=== PATIENT | female | born 1995 | race Caucasian/White ===

== ENCOUNTER 2024-06-05 19:34 | Emergency (ER) | payer SELFPAY ==
[~2024-06-05] VITALS: Ht 170.2 cm; Wt 50.0 kg
--- NOTE | 2024-06-05 19:50 | ED.PDOC ---
Psychiatric HPI Comments 28-year-old female who came to ER via EMS for suicide ideations. Patient does have history of anxiety and depression. Patient admits that she feels very depressed recently, and she feels like she wants to end her life. She has no definite plans on how to though. She denies being homicidal. Denies any hallucinations. Denies taking any prohibited drugs or alcohol. Per EMS, family members are concerned that the patient might have overdosed on her anxiety pills. Chief Complaint: Suicidal Time Seen by MD: 19:49 Reviewed Notes: Nurses Notes Information Source: Patient, Emergency Med Personnel Severity: Unable to Care for Self, Unable to Control Self Severity of Pain: Moderate Severity of Mental Status: Moderate Severity of Symptoms: Moderate Timing: Hours Duration: Since onset Prehospital treatment: None Presents with: Depression, Anxiety, Unclear Thinking, Suicidal Ideation Circumstance: Medical Clearance Current substance abuse: None Stressors: Relationships History of: Depression, Anxiety Associated signs and symptoms: Depression, Hopeless, Anxiety Past Medical History PAST MEDICAL HISTORY: Anxiety, Depression Surgical History: Denies all surgeries BELT SANDER STONE History: Denies all BELT SANDER STONE Hx Family History Family History: Reviewed,noncontributory to illness Social History Smoker: Non-Smoker Alcohol: Denies ETOH Use Drugs: Denies Drug Use Lives In: Home Constitutional: denies: chills, diaphoresis, fatigue, fever, malaise, sweats, weakness, others EENTM: denies: blurred vision, double vision, ear bleeding, ear discharge, ear drainage, ear pain, ear ringing, eye pain, eye redness, hearing loss, mouth pain, mouth swelling, nasal discharge, nose bleeding, nose congestion, nose pain, photophobia, tearing, throat pain, throat swelling, voice changes, others Respiratory: denies: cough, hemoptysis, orthopnea, SOB at rest, shortness of breath, SOB with excertion, stridor, wheezing, others Cardiovascular: denies: chest pain, dizzy spells, diaphoresis, Dyspnea on exertion, edema, irregular heart beat, left arm pain, lightheadedness, palpitations, PND, syncope, others Gastrointestinal: denies: abdomen distended, abdominal pain, blood streaked bowels, constipated, diarrhea, dysphagia, difficulty swallowing, hematemesis, melena, nausea, poor appetite, poor fluid intake, rectal bleeding, rectal pain, vomiting, others Genitourinary: denies: abnormal vagina bleeding, burning, dyspareunia, dysuria, flank pain, frequency, hematuria, incontinence, pain, , vagina discharge, urgency, others Neurological: denies: dizziness, fainting, headache, left sided numbness, left sided weakness, numbness, paresthesia, pre-existing deficit, right sided numbness, right sided weakness, seizure, speech problems, tingling, tremors, weakness, others Musculoskeletal: denies: back pain, gout, joint pain, joint swelling, muscle pain, muscle stiffness, neck pain, others Integumetry: denies: bruises, change in color, change in hair/nails, dryness, laceration, lesions, lumps, rash, wounds, others Allergic/Immunocompromised: denies: Difficulty Healing, Frequent Infections, Hives, Itching, others Hematologic/Lymphatic: denies: anemia, blood clots, easy bleeding, easy bruising, swollen glands, others Endocrine: denies: excessive hunger, excessive sweating, excessive thirst, excessive urination, flushing, intolerance to cold, intolerance to heat, unexplained weight gain, unexplained weight loss, others Psychiatric: reports: anxiety, depression, suicidal; denies: bipolar disorder, hopeless, panic disorder, schizophrenia, sleepless, others Physical Exam General Appearance: No Apparent Distress, Normal HEENT: Normal ENT Inspection, Pharynx Normal, TMs Normal Neck: Full Range of Motion, Non-Tender, Normal, Normal Inspection Respiratory: Chest Non-Tender, Lungs Clear, No Accessory Muscle Use, No Respiratory Distress, Normal Breath Sounds Cardiovascular: No Edema, No JVD, No Murmur, No Gallop, Normal Peripheral Pulses, Regular Rate/Rhythm Breast Exam: Deferred Gastrointestinal: No Organomegaly, Non Tender, No Pulsatile Mass, Normal Bowel Sounds, Soft Genitalia: Deferred Pelvic: Deferred Rectal: Deferred Extremities: No calf tenderness, Normal capillary refill, Normal inspection, Normal range of motion, Non-tender, No pedal edema Musculoskeletal : Apperance: Normal Neurologic: Alert, last scourer II-XII nml as Tested, No Motor Deficits, Normal Affect, Normal Mood, No Sensory Deficits Cerebellar Function: Normal Reflexes: Normal Skin: Dry, Normal Color, Warm Lymphatic: No Adenopathy Was a procedure done? Was a procedure done?: No Psych Differential Dx Psych. Differential Dx: Anxiety, Depression, Suicidal OD Differential Dx: Anxiety, Depression, Drug Overdose X-Ray, Labs, Meds, VS Vital Signs Date Time Temp Pulse Resp B/P (MAP) Pulse Ox O2 Delivery O2 Flow Rate FiO2 06/05/24 20:30 Room Air* 0 21 06/05/24 20:30 98.1 97 21 152/82 (105) 99 98.1 Lab Test 06/05/24 19:53 06/05/24 19:52 Range/Units Urine Color Light-yellow Yellow Urine Clarity Clear Clear Urine pH 6.5 5.0-9.0 Urine Specific [place] 1.016 1.001-1.035 Urine Protein Trace H Negative Urine Ketones Trace Negative Urine Blood 2+ H Negative /uL Urine Nitrite Negative Negative Urine Bilirubin Negative Negative Urine Urobilinogen Normal Negative mg/dL Urine Leukocyte Esterase Negative Negative /uL Urine RBC 126 0 - 4 /hpf Urine WBC 1 0 - 5 /hpf Urine Squamous Epithelial Cells Few <5 /hpf Urine Bacteria None seen None Seen /hpf Urine Mucus Few None Seen Urine Glucose Normal Normal mg/dL Urine Test Negative Negative Urine Opiates Screen Neg NEGATIVE Urine Fentanyl Screen Neg NEGATIVE Urine Barbiturates Screen Neg NEGATIVE Urine Phencyclidine Screen Neg NEGATIVE Urine Amphetamines Screen Neg NEGATIVE Urine Benzodiazepines Screen Neg NEGATIVE Urine Cocaine Screen Neg NEGATIVE Urine Cannabinoids Screen Neg NEGATIVE White Blood Count 12.5 H 4.4-10.8 10^3/uL Red Blood Count 4.62 4.0-5.20 10^6/uL Hemoglobin 13.8 12.2-16.2 g/dL Hematocrit 41.9 36.0-46.0 % Mean Corpuscular Volume 90.5 80.0-100.0 fL Mean Corpuscular Hemoglobin 29.9 28.0-32.0 pg Mean Corpuscular Hemoglobin Concent 33.0 32.0-36.0 g/dL Red Cell Distribution Width 14.0 11.8-14.3 % Platelet Count 281 140-450 10^3/uL Mean Platelet Volume 7.9 6.9-10.8 fL Neutrophils (%) (Auto) 82.2 H 37.0-80.0 % Lymphocytes (%) (Auto) 11.6 10.0-50.0 % Monocytes (%) (Auto) 5.6 0.0-12.0 % Eosinophils (%) (Auto) 0.2 0.0-7.0 % Basophils (%) (Auto) 0.4 0.0-2.0 % Neutrophils # (Auto) 10.3 H 1.6-8.6 10 ^3/uL Lymphocytes # (Auto) 1.4 0.4-5.4 10 ^3/uL Monocytes # (Auto) 0.7 0-1.3 10 ^3/uL Eosinophils # (Auto) 0 0-0.8 10 ^3/uL Basophils # (Auto) 0 0-0.2 10 ^3/uL Nucleated Red Blood Cells 0.1 % Sodium Level 139 136-145 mmol/L Potassium Level 3.8 3.5-5.1 mmol/L Chloride Level 106 98-107 mmol/L Carbon Dioxide Level 23 20-31 mmol/L Anion Gap 10 5-15 Blood Urea Nitrogen 8 L 9-23 mg/dL Creatinine 0.89 0.550-1.02 mg/dL Glomerular Filtration Rate Calc 91 >90 mL/min BUN/Creatinine Ratio 9.0 L 10.0-20.0 Serum Glucose 92 74-106 mg/dL Calcium Level 10.5 H 8.7-10.4 mg/dL Salicylates Level < 3.0 -30 mg/dL Acetaminophen Level < 2.0 L 10.0-20.0 UG/ML Plasma/Serum Blood Alcohol < 3.0 <10 mg/dL Time of 1ST Reevaluation: 19:45 Reevaluation 1ST: Unchanged Patient Education/Counseling: Diagnosis, Treatment Family Education/Counseling: No Family Present Departure 1 Departure Time of Disposition: 00:16 (Patient was medically cleared and then evaluated by psychiatry who also cleared the patient go home. We will discharge patient home with outpatient follow up) Impression: Primary Impression: Major depressive disorder Qualified Codes: F33.0 - Major depressive disorder, recurrent, mild Disposition: 01 HOME / SELF CARE / HOMELESS Condition: Stable Additional Instructions: Your workup today was benign. You should follow up with your regular doctor within 1 week. You should stay well rested and well hydrated. If your symptoms worsen or you have any other concerns please return to the emergency room. Discharged With: Self Critical Care Note Critical Care Time?: No Stability Stability form required: No Heart Score Heart Score: Heart Score Response (Comments) Value History N/A 0 EKG N/A 0 Age N/A 0 Risk Factors N/A 0 Troponin N/A 0 Total 0 I personally scribed for JULIA FOX MD ([email or web address]) on 06/05/24 at 19:49. Electronically submitted by Zuhair Ngo ([facility]). JULIA FOX MD Jun 05, 2024 19:49
[2024-06-05 20:08] LABS: Basophils # (auto) 0 10 ^3/uL (0-0.2); Basophils % (auto) 0.4 % (0.0-2.0); Eosinophils # (auto) 0 10 ^3/uL (0-0.8); Eosinophils % (auto) 0.2 % (0.0-7.0); Hematocrit 41.9 % (36.0-46.0); Hemoglobin 13.8 g/dL (12.2-16.2); Lymphocytes # (auto) 1.4 10 ^3/uL (0.4-5.4); Lymphocytes % (auto) 11.6 % (10.0-50.0); Mean Corpuscular Hemoglobin 29.9 pg (28.0-32.0); Mean Corpuscular Volume 90.5 fL (80.0-100.0); Monocytes # (auto) 0.7 10 ^3/uL (0-1.3); Monocytes % (auto) 5.6 % (0.0-12.0); Neutrophils # (auto) 10.3 10 ^3/uL (1.6-8.6); Neutrophils % (auto) 82.2 % (37.0-80.0); Nucleated Red Blood Cells % 0.1 %; Platelet Count (auto) 281 10^3/uL (140-450); Red Blood Cells 4.62 10^6/uL (4.0-5.20); White Blood Cell 12.5 10^3/uL (4.4-10.8)
[2024-06-05 20:15] LABS: Chloride 106 mmol/L (98-107); Potassium 3.8 mmol/L (3.5-5.1); Sodium 139 mmol/L (136-145)
[2024-06-05 20:16] LABS: Anion Gap 10 (5-15); Carbon Dioxide 23 mmol/L (20-31)
[2024-06-05 20:18] LABS: Calcium 10.5 mg/dL (8.7-10.4)
[2024-06-05 20:21] LABS: Glucose 92 mg/dL (74-106)
[2024-06-05 20:27] LABS: Acetaminophen < 2.0 UG/ML (10.0-20.0); Salicylate < 3.0 mg/dL (-30)
[2024-06-05 20:29] LABS: Blood Alcohol < 3.0 mg/dL (<10); Blood Urea Nitrogen 8 mg/dL (9-23)
[2024-06-05 20:30] VITALS: TEMP 98.1
[2024-06-05 21:07] LABS: Urine Bacteria None Seen /hpf (None Seen)
[2024-06-05 21:16] LABS: Urine Blood 2+ /uL (Negative); Urine Clarity Clear (Clear); Urine Color Light-Yellow (Yellow); Urine Mucus FEW (None Seen); Urine Protein, UAD TRACE (Negative); Urine Specific Gravity 1.016 (1.001-1.035); Urine Urobilinogen Normal (Negative); Urine WBC 1 /hpf (0 - 5); Urine pH 6.5 (5.0-9.0)
[2024-06-05 21:24] LABS: Amphetamine Screen, Urine Neg (NEGATIVE); Barbiturate Scree,Urine Neg (NEGATIVE); Benzodiazephine Screen, Urine Neg (NEGATIVE); Cannabinoid Screen, Urine Neg (NEGATIVE); Cocaine Screen, Urine Neg (NEGATIVE); Opiate Scree,Urine Neg (NEGATIVE); Phencyclidine Screen, Urine Neg (NEGATIVE)
[2024-06-05 21:46] VITALS: BP 152/82; PULSE 97; RESP 21; O2SAT 99
--- NOTE | 2024-06-05 23:34 | DVHINCON2 ---
Date of Service if different f: Jun 05, 2024 Time of Service: 23:05 Consult Consult Note PSYCHIATRY ED NEW CONSULT HPI: 28 yo M pt with PPH of depression and anxiety presents to ED BIBA for safety, psychiatric stabilization and possible med initiation/optimization in setting of passive SI. Psychiatry consulted for safety evaluation and recommendations in context of current presentation Per pt, reports hx of chronic depression often mixed with anxiety, "today was just a bad day, I really miss seeing my children" and displayed some emotional reaction/outpouring of emotions to her parents which included fleeting SI with no plan/intent which prompted parents to call 911 for psychiatric evaluation. Pt reports "i am okay now, i just needed to talk to somebody" Currently denies depressed mood, hopelessness, helplessness, isolation, negative thoughts, loss of interest, or anhedonia. Denies anxiety/panic/OCD/PTSD symptoms. Sleep/appetite/energy/conc relatively WNL. Adamantly denies SI/HI. Denies AVH/paranoia/catatonic/perceptual disturbances/personality changes. No overt manic, psychotic, major depressive, cognitive, dissociative phenomena, panic, or somatic symptoms noted. Appears future oriented/goal directed. Reports primary stress as ongoing divorce and custody issues of her two young children Pt currently does have psychiatrist/therapist out in community with upcoming appts next month. Currently rx'd Venlafaxine XR 75 mg qd with modest therapeutic effects. Denies any hx of med noncompliance or self medicating mood symptoms with ETOH, THC or IDU with 2 children but in process of divorce, no children, unemployed, lives with parents, HS grad, some support system noted (immediate family). No hx of childhood trauma or victim of DV. Unknown FH. No acute medical issues, hx of seizures/TBI, or recent head injuries, NKDA Does not have hx of suicide attempts, SIB/PSG, or prior psych hospitalizations/5150. Denies history of violence, unprovoked aggression, or assaultive behaviors. Denies recent hx of impulsivity, attention seeking behaviors, anger outbursts, emotional dysregulation, mood reactivity or engaging in risky behaviors. Does not have access to firearms. Currently denies SI/HI. Id entifies self/family as PPF. No safety concerns noted during encounter. MSE: General Appearance/Behavior: Alert and awake; appears stated age, well developed, fair grooming and hygiene; calm and cooperative, fair eye contact, no PMA/PMR Speech: coherent, rrr Thought Process: linear, logical, appears goal-directed Thought Content: Abnormal Thoughts and Perceptions: None Homicidality / Violent Thoughts: None Suicidality: adamantly denies SI Hallucinations: denies AVH Delusions: denies paranoia, persecutory, or grandiose delusions Obsessions /compulsions : None Judgment and Insight: fair judgment with fair insight Mood & Affect: "i feel better with mood-congruent, mildly constricted/restricted, appropriate Orientation: oriented to person, place, time Attention/Concentration: appears intact Memory: grossly intact Language: no unusual or inappropriate language Assessment: 28 yo M pt with PPH of depression and anxiety presents to ED BIBA for safety, psychiatric stabilization and possible med initiation/optimization in setting of passive SI Currently denies SI/HI/AVH. Linear and appears future oriented/ goal directed in thought. Identifies several protective factors including a desire to live, family support, and her two children No hx of SI/SA/SIB or prior psych hospitalizations is reassuring. Pts presenting MH symptoms appear more secondary to difficulty controlling emotions in context of several life stressors (see HPI) with minimal interference in daily functioning Presently, pt does not show any signs of immediate danger to self or others that would warrant a higher level of care. Thus, pt does not meet criteria for 5150 or involuntary inpatient psych admission as is not DTS, DTO or GD although voluntary inpt psychiatric hospitalization was offered but pt respectfully declined. Also declined further ED observation/reassessment. No acute safety concerns noted. Acute suicide risk is nonexistent to relatively low. Pts symptoms should be able to be managed safely in an outpatient setting with com bination of psychopharmacology and psychotherapy with good prognosis if pt follows through with appropriate treatment recommendations. Pt currently does have psychiatrist/therapist out in community and remains future oriented to follow up with outpatient MH providers over the next several weeks for ongoing med management/psychotx No indication to change current med regimen at this time Primary Diagnosis: Adjustment disorder unspecified Plan: Does not warrant involuntary inpatient psychiatric hospitalization or 5150 hold at this time No acute safety concerns Pt can be safely discharged back to current residence Resume outpatient psychotropic Effexor XR 75 mg qd No med changes or additional meds needed at this time Supportive tx provided, discussed safety plan with pt Encouraged mindfulness techniques (reading, walking, meditation, exercise, deep breathing) during times of stress Pt planning on pursuing ongoing therapy/med management with outpatient MH providers over next several weeks Instructed pt to call [phone] or return to ED if mood symptoms worsen or new onset SI/HI upon discharge Pt verbalized understanding and is receptive to above tx plan This case was discussed with ED nurse/provider and all parties in agreement with above tx plan Ferny West MD Plan discussed with: Patient FERNY WEST MD Jun 05, 2024 23:34
== END 2024-06-06 00:40 | disposition home or self-care (01) ==
LOC: EDBD 19:34 → ER 19:34
DX: F32.9 Major depressive disorder, single episode, unspecified (principal); F41.9 Anxiety disorder, unspecified
CPT/HCPCS: 36415; 80048; 80307; 80320; 80329; 81001; 81025; 85025